=== PATIENT | male | born 1950 | race Caucasian/White ===

== ENCOUNTER → 2018-05-26 | Outpatient (CLI) | payer MEDICARE, OTHER | END | disposition home or self-care (01) | LOC: RAH 13:55 | PROVIDERS: ATTEND Internal Medicine | DX: M47.896 Other spondylosis, lumbar region (principal); M48.02 Spinal stenosis, cervical region; I70.0 Atherosclerosis of aorta | CPT/HCPCS: 72040; 72100 ==

== ENCOUNTER → 2019-08-26 | Outpatient (CLI) | payer MEDICARE | END | disposition home or self-care (01) | LOC: RAH 13:35 | PROVIDERS: ATTEND Physical Medicine & Rehabilitation | DX: S46.011A Strain of muscle(s) and tendon(s) of the rotator cuff of right shoulder, initial encounter (principal); M79.641 Pain in right hand; M89.8X4 Other specified disorders of bone, hand; X58.XXXA Exposure to other specified factors, initial encounter; Y93.89 Activity, other specified; Y92.89 Other specified places as the place of occurrence of the external cause; Y99.8 Other external cause status | CPT/HCPCS: 73030; 73120; 73221 ==

== ENCOUNTER → 2021-06-02 | Outpatient (CLI) | payer MEDICARE | END | disposition home or self-care (01) | LOC: RAH 14:52 | PROVIDERS: ATTEND Internal Medicine | DX: I10 Essential (primary) hypertension (principal); I70.202 Unspecified atherosclerosis of native arteries of extremities, left leg | CPT/HCPCS: 93925 ==

== ENCOUNTER 2022-05-09 05:40 | Day surgery (SDC) | payer MEDICARE ==
[2022-05-08 10:15] LABS: BASOPHILS % (AUTO) 1.9 % (0.0-5.0); EOSINOPHILS % (AUTO) 6.1 % (0.0-8.0); LYMPHOCYTES % (AUTO) 31.9 % (21.0-51.0); MEAN CORPUSCULAR HEMOGLOBIN 32.3 pg (27.0-33.0); MEAN CORPUSCULAR VOLUME 97.9 fL (79-99); MONOCYTES % (AUTO) 10.5 % (3.0-13.0); NEUTROPHILS % (AUTO) 49.2 % (40.0-77.0); PLATELET COUNT (AUTO) 206 K/uL (130-400); RED CELL DISTRIBUTION WIDTH 13.4 % (11.0-15.5); WHITE BLOOD COUNT (AUTO) 4.8 K/uL (4.8-10.8)
[2022-05-08 10:32] LABS: CREATININE 1.1 mg/dL (0.5-1.5)
[2022-05-08 11:21] VITALS: BP 140/76
[2022-05-09] VITALS (11 sets, daily range): BP systolic 120–156; BP diastolic 70–85
[~2022-05-09] VITALS: Ht 175.3 cm; Wt 84.8 kg
[~2022-05-09 05:40] MED LIST: ACET-3540 PO; AZEL137S11 NS; CALC-129 PO; CEFAZOLIN SODIUM 2 GM VIAL IV SCH; CHOL200052 PO; EZET10TA48 PO; FLUO15CR2 TP; FLUT16H NASAL; FOLI0.8C PO; GLUC-29 PO; LOSA25TA41 PO; MELA10TA2 PO; OMEGA PO; PREVAGEN ES PO; PYRI25TA4 PO; ROSU40TA21 PO; TEST1T TD; TIZA4CAP8 PO; UBID50TA3 PO; VITA400C79 PO
[2022-05-09] MEDS ORDERED: CEFAZOLIN SODIUM 1 GM VIAL ONE (06:14)
[2022-05-09] MEDS ORDERED: LACTATED RINGERS 1000ML 1,000 ML IV ONE (06:14)
[2022-05-09] MEDS ORDERED: MIDAZOLAM HCL 1 MG/ML 2ML VIAL ONE (07:00)
[2022-05-09] MEDS ORDERED: FENTANYL CITRATE PF 50 MCG/1 ML 2ML VIAL ONE (07:01)
[2022-05-09] MEDS ORDERED: LIDOCAINE HCL MDV 0.5% 50ML VIAL IJ ONE (07:04)
[2022-05-09] MEDS ORDERED: PROPOFOL 10 MG/ML 20ML VIAL IV ONE (07:11)
[2022-05-09] MEDS ORDERED: LIDOCAINE PF 100MG/5ML (2%) SYRINGE 5ML ONE (08:18)
== END 2022-05-09 09:45 | disposition home or self-care (01) ==
LOC: DAH 05:40
PROVIDERS: ATTEND Neurological Surgery
DX: G56.03 Carpal tunnel syndrome, bilateral upper limbs (principal); I10 Essential (primary) hypertension; Z98.890 Other specified postprocedural states
CPT/HCPCS: 36415; 64721; 71045; 80048; 85025; 87635; 93005 ×2; A4215; A4221; A4222; A4223; A4663; A6260; C9803; J0690; J2001; J2250; J2704; J3010; J3490; J7120

== ENCOUNTER → 2023-05-15 | Outpatient (CLI) | payer MEDICARE ==
[~2023-05-15] MED LIST changes: -CEFAZOLIN SODIUM 2 GM VIAL IV SCH
== END | disposition home or self-care (01) ==
LOC: RAH 11:13
PROVIDERS: ATTEND Internal Medicine
DX: I70.0 Atherosclerosis of aorta (principal)
CPT/HCPCS: 76775

== ENCOUNTER → 2024-01-22 | Outpatient (CLI) | payer MEDICARE | END | disposition home or self-care (01) | LOC: LAB 10:35 | PROVIDERS: ATTEND Internal Medicine Cardiovascular Disease | DX: E03.9 Hypothyroidism, unspecified (principal); E55.9 Vitamin D deficiency, unspecified | CPT/HCPCS: 36415; 82306; 84443 ==

== ENCOUNTER → 2024-05-13 | Outpatient (CLI) | payer MEDICARE ==
[~2024-05-13] MED LIST changes: -ROSU40TA21 PO; +ROSU40TA70 PO
== END | disposition home or self-care (01) ==
LOC: RAH 10:56
PROVIDERS: ATTEND Surgery Vascular Surgery
DX: I71.43 Infrarenal abdominal aortic aneurysm, without rupture (principal); K57.30 Diverticulosis of large intestine without perforation or abscess without bleeding; M47.815 Spondylosis without myelopathy or radiculopathy, thoracolumbar region; Z98.890 Other specified postprocedural states
CPT/HCPCS: 74176